=== PATIENT | male | born 1960 | race Caucasian/White ===

== ENCOUNTER 2020-06-19 02:25 | Emergency (ER) | payer BC ==
[~2020-06-19] VITALS: Ht 170.1 cm; Wt 97.5 kg
[~2020-06-19 02:25] MED LIST: AVAPRO75 MG PO; HYDR12.5C PO; REQUIP0.25 M1 PO; VICODIN ES 7501 TAB PO
[2020-06-19] MEDS ORDERED: IRBESARTAN150 MG PO (02:32)
[2020-06-19] MEDS ORDERED: ROPINIROLE HYDRO1 MG PO (02:39)
[2020-06-19 02:54] LABS: BASO % 0.1 % (0.0-1.0); EOS # 0.1 10*3/uL (0.0-0.4); EOS % 0.5 % (1.0-4.0); HEMATOCRIT 46.4 % (42.0-52.0); LYMPH # 1.3 10*3/uL (1.3-4.4); MEAN CELL VOLUME 87.5 fl (80.0-94.0); MEAN CORPUSCULAR HGB 28.9 pg (27.0-31.0); MONO # 0.9 10*3/uL (0.1-1.0); MONO % 6.1 % (3.0-9.0); NEUT # 12.1 10*3/uL (2.3-7.9); NEUT % 83.9 % (47.0-73.0); PLATELET COUNT AUTOMATED 266 10*3/uL (130-400); RED CELL DISTRI WIDTH 13.3 % (0-14.5); WHITE BLOOD COUNT 14.4 10*3/uL (4.8-10.8)
[2020-06-19 03:11] LABS: ALBUMIN 3.9 gm/dl (3.1-4.5); ALKALINE PHOSPHATASE 89 U/L (45-117); BUN 16 mg/dl (7-24); CHLORIDE 107 mmol/L (98-107); CREATININE 0.97 mg/dL (0.70-1.30); POTASSIUM 3.1 mmol/L (3.5-5.1); SGOT/AST 22 IU/L (3-35); SGPT/ALT 40 U/L (12-78); SODIUM 141 mmol/L (136-145); TOTAL PROTEIN 7.6 gm/dL (6.4-8.2)
[2020-06-19 03:14] LABS: TROPONIN I < 0.015 ng/ml (<0.045)
[2020-06-19 04:13] LABS: BILIRUBIN 1+ (Negative); BLOOD Negative (Negative); CLARITY Clear (Clear); COLOR Dark Yellow (Yellow); GLUCOSE Negative (Negative); KETONE 1+ (Negative); LEUKO ESTERASE Negative (Negative); NITRITE Negative (Negative); SPECIFIC GRAVITY 1.025 (1.001-1.030)
[2020-06-19] MEDS ORDERED: ZOFRAN4 MG PO (04:51)
== END 2020-06-19 04:55 | disposition home or self-care (01) ==
LOC: ED 02:25
PROVIDERS: Internal Medicine
DX: B34.9 Viral infection, unspecified (principal); E87.6 Hypokalemia; D72.829 Elevated white blood cell count, unspecified; I10 Essential (primary) hypertension; K21.9 Gastro-esophageal reflux disease without esophagitis; Z79.899 Other long term (current) drug therapy; Z90.49 Acquired absence of other specified parts of digestive tract; Z20.822 Contact with and (suspected) exposure to COVID-19

== ENCOUNTER 2021-04-17 10:23 | Emergency (ER) | payer OTHER, BC ==
[~2021-04-17] VITALS: Ht 170.1 cm; Wt 102.1 kg
[~2021-04-17 10:23] MED LIST changes: +IRBESARTAN150 MG PO; +ROPINIROLE HYDRO1 MG PO; +ZOFRAN4 MG PO
[2021-04-17] MEDS ORDERED: IBUPROFEN600 MG PO (12:55)
== END 2021-04-17 13:13 | disposition home or self-care (01) ==
LOC: ED 10:23
DX: S86.912A Strain of unspecified muscle(s) and tendon(s) at lower leg level, left leg, initial encounter (principal); Z79.899 Other long term (current) drug therapy; X50.0XXA Overexertion from strenuous movement or load, initial encounter; Y93.89 Activity, other specified; Y92.89 Other specified places as the place of occurrence of the external cause; Y99.8 Other external cause status